=== PATIENT | male | born 1945 | race Caucasian/White ===

== ENCOUNTER 2017-11-11 11:30 | Inpatient (IN) | payer OTHER ==
[~2017-11-11] VITALS: Ht 162.6 cm; Wt 83.9 kg
[~2017-11-11 11:30] MED LIST: ECOTRIN81 MG; ENALAPRIL MALEA20 MG; GLIMEPIRIDE2 MG; HYDROCHLOROTHIA25 GM; JANUMET 50-1,01 EACH PO; NORVASC5 MG; ZOCOR5 MG
[2017-11-11] MEDS ORDERED: ZYRTEC10 MG PO (11:58)
[2017-11-11] MEDS ORDERED: HYDROCHLOROTHIA25 MG PO (11:59)
[2017-11-11] MEDS ORDERED: LOSARTAN POTASS50 MG PO (12:00)
[2017-11-11] MEDS ORDERED: VERAPAMIL HCL180 M1 PO (12:00)
[2017-11-17] MEDS ORDERED: PERCOCET 5-3251 EACH PO (11:48)
[2017-11-17] MEDS ORDERED: GABAPENTIN800 MG PO (11:48)
[2017-11-17] MEDS ORDERED: AMOX-CLAV 875-1 EACH PO (11:48)
[2017-11-17] MEDS ORDERED: DOCUSATE SODIU100 MG PO (11:48)
[2017-11-17] MEDS ORDERED: CLONAZEPAM1 MG PO (11:48)
== END 2017-11-17 14:28 | disposition home or self-care (01) | DRG 460 ==
LOC: O/R 11-16 04:45 → PED 11-16 04:45 → SURH 11-16 07:00 → PED 11-16 17:58
PROVIDERS: Orthopaedic Surgery Orthopaedic Surgery of the Spine
PROC: 0SG10AJ Fusion of 2 or more Lumbar Vertebral Joints with Interbody Fusion Device, Posterior Approach, Anterior Column, Open Approach (ICD-10-PCS; 2017-11-16)
PROC: 0ST20ZZ Resection of Lumbar Vertebral Disc, Open Approach (ICD-10-PCS; 2017-11-16)
PROC: 07DS3ZZ Extraction of Vertebral Bone Marrow, Percutaneous Approach (ICD-10-PCS; 2017-11-16)
PROC: 0SG10A0 Fusion of 2 or more Lumbar Vertebral Joints with Interbody Fusion Device, Anterior Approach, Anterior Column, Open Approach (ICD-10-PCS; principal; 2017-11-16 07:00)
DX: M43.16 Spondylolisthesis, lumbar region (principal); M48.061 Spinal stenosis, lumbar region without neurogenic claudication; I10 Essential (primary) hypertension; E11.9 Type 2 diabetes mellitus without complications; M51.16 Intervertebral disc disorders with radiculopathy, lumbar region

== ENCOUNTER → 2020-12-09 | Outpatient (CLI) | payer OTHER ==
[~2020-12-09] MED LIST changes: +AMOX-CLAV 875-1 EACH PO; +CLONAZEPAM1 MG PO; +DOCUSATE SODIU100 MG PO; +GABAPENTIN800 MG PO; +HYDROCHLOROTHIA25 MG PO; +LOSARTAN POTASS50 MG PO; +PERCOCET 5-3251 EACH PO; +VERAPAMIL HCL180 M1 PO; +ZYRTEC10 MG PO
== END | disposition home or self-care (01) ==
LOC: PPH VACUNA
PROVIDERS: ATTEND Emergency Medicine Pediatric Emergency Medicine
DX: Z23 Encounter for immunization (principal)

== ENCOUNTER 2020-12-30 | Outpatient (CLI) | payer OTHER | END 2020-12-30 10:29 | disposition home or self-care (01) | LOC: PPH VACUNA | PROVIDERS: ATTEND Emergency Medicine Pediatric Emergency Medicine | DX: Z23 Encounter for immunization (principal) ==